=== PATIENT | female | born 1990 | race Asian ===

== ENCOUNTER 2017-08-29 17:13 | Inpatient (IN) | payer BC ==
[2017-08-29] MEDS ORDERED: OBEPIDURAL* 250 ML ONE (22:21)
[2017-08-29 22:54] LABS: Hematocrit 37 % (35-47); Hemoglobin 12.5 g/dl (12.0-16.0); Mean Corpuscular HGB Conc 34 g/dl (31-36); Mean Corpuscular Hemoglobin 28 pg (27-31); Mean Corpuscular Volume 84 fL (80-97); Mean Platelet Volume 11 um3 (7.4-10.4); Red Blood Count 4.42 10^6/ul (4.0-5.4); Red Cell Distribution Width 13 % (10.5-15); White Blood Count 9.6 10^3/ul (3.5-10.8)
[2017-08-29] MEDS ORDERED: Phenylephrine IV* 40 MCG/ML 10 ML SYRINGE IV PUSH PRN ×2 (23:21)
[2017-08-29] MEDS ORDERED: EPHEDrine (Pressors)* 50 MG/ML VIAL IV PUSH PRN ×2 (23:21)
[2017-08-29] MEDS ORDERED: OBEPIDURAL* 250 ML EPIDURAL SCH (23:45)
[2017-08-30] MEDS ORDERED: Acetaminophen TAB* 325 MG PO ONE (04:03)
[2017-08-30] MEDS ORDERED: Acetaminophen TAB* 325 MG ONE (04:04)
[2017-08-30] MEDS ORDERED: Ampicillin IV* 2 GM in NS 0.9% 100 ML* 100 ML IVPB ONE ×2 (05:28→11:55)
[2017-08-30 05:58] LABS: Hematocrit 33 % (35-47); Hemoglobin 11.2 g/dl (12.0-16.0); Mean Corpuscular HGB Conc 34 g/dl (31-36); Mean Corpuscular Hemoglobin 29 pg (27-31); Mean Corpuscular Volume 84 fL (80-97); Mean Platelet Volume 10 um3 (7.4-10.4); Red Cell Distribution Width 13 % (10.5-15); White Blood Count 9.5 10^3/ul (3.5-10.8)
[2017-08-30] MEDS: GENTAMICIN ADULT IVPB SCH ×2 (06:11→14:03)
[2017-08-30] MEDS: NS 0.9% IVPB SCH ×2 (06:11→14:03)
[2017-08-30] MEDS ORDERED: Oxytocin in LR* 20 UNITS/1,000 ML BAG IVPB ONE (15:24)
[2017-08-30] MEDS ORDERED: Acetaminophen TAB* 325 MG PO PRN (16:05)
[2017-08-30] MEDS ORDERED: Glycerin ADULT SUPP PR PRN (16:05)
[2017-08-30] MEDS ORDERED: Oxytocin in LR* 20 UNITS/1,000 ML BAG IVPB SCH (17:00)
[2017-08-30] MEDS ORDERED: Simethicone TAB* 80 MG TAB.CHEW PO SCH (17:30)
[2017-08-30] MEDS: Ibuprofen TAB* 600 MG PO PRN (18:10)
[2017-08-30] MEDS: Dibucaine 1% 28.35 GM TUBE PR PRN (19:27)
[2017-08-30] MEDS: Witch Hazel PAD* JAR TOPICAL PRN (19:27)
[2017-08-30] MEDS: Docusate CAP* 100 MG PO SCH (20:59)
[2017-08-30] MEDS ORDERED: Phenylephrine IV* 40 MCG/ML 10 ML SYRINGE ONE (22:13)
[2017-08-31] MEDS: Ibuprofen TAB* 600 MG PO PRN ×4 (04:02→21:59)
[2017-08-31 07:48] LABS: Hematocrit 28 % (35-47); Mean Corpuscular HGB Conc 33 g/dl (31-36); Mean Corpuscular Hemoglobin 28 pg (27-31); Mean Corpuscular Volume 85 fL (80-97); Mean Platelet Volume 10 um3 (7.4-10.4); Red Blood Count 3.24 10^6/ul (4.0-5.4); Red Cell Distribution Width 13 % (10.5-15); White Blood Count 12.8 10^3/ul (3.5-10.8)
[2017-08-31] MEDS: Ferrous Gluconate TAB* 324 MG TAB PO SCH ×2 (09:51→21:59)
[2017-08-31] MEDS: Docusate CAP* 100 MG PO SCH ×3 (09:52→21:59)
[2017-09-01] MEDS: Ibuprofen TAB* 600 MG PO PRN (08:54)
[2017-09-01] MEDS: Docusate CAP* 100 MG PO SCH (08:55)
[2017-09-01] MEDS: Witch Hazel PAD* JAR TOPICAL PRN (08:55)
[2017-09-01] MEDS: Ferrous Gluconate TAB* 324 MG TAB PO SCH (08:55)
[2017-09-01] MEDS: Dibucaine 1% 28.35 GM TUBE PR PRN (08:55)
--- NOTE | 2017-09-01 08:55 | PTEDU ---
Patient Name: NEVILLE MONDRAGON NEVILLE MONDRAGON selected video: Never Ever Shake a Baby to view on 09/01/2017 at 8:54:06 AM [place] [facility] [id number]
--- NOTE | 2017-09-01 09:08 | PTEDU ---
Patient Name: NEVILLE MONDRAGON NEVILLE MONDRAGON selected video: Follow Me Mum: [employer] to Successful to view on 017 at 9:08:27 [id number]
[2017-09-01 09:24] VITALS: BP 114/79
--- NOTE | 2017-09-01 09:30 | PTEDU ---
Patient Name: NEVILLE MONDRAGON NEVILLE MONDRAGON selected video: BBOB: Nurturing Your Gorgeous &Growing Baby by to view on 09/01/2017 at 9:29:52 [id number]
== END 2017-09-01 12:42 | disposition home or self-care (01) | DRG 560 ==
LOC: MCHOBOUT 17:13 → MCHOB 18:22
PROVIDERS: ADMIT Midwife; ATTEND Midwife
PROC: 10907ZC Drainage of Amniotic Fluid, Therapeutic from Products of Conception, Via Natural or Artificial Opening (ICD-10-PCS; principal; 2017-08-30)
PROC: 4A1HX4Z Monitoring of Products of Conception, Cardiac Electrical Activity, External Approach (ICD-10-PCS; 2017-08-30)
PROC: 10E0XZZ Delivery of Products of Conception, External Approach (ICD-10-PCS; 2017-08-30)
PROC: 0KQM0ZZ Repair Perineum Muscle, Open Approach (ICD-10-PCS; 2017-08-30)
DX: O24.429 Gestational diabetes mellitus in childbirth, unspecified control (principal); O75.2 Pyrexia during labor, not elsewhere classified; O41.1230 Chorioamnionitis, third trimester, not applicable or unspecified; O70.1 Second degree perineal laceration during delivery; O90.81 Anemia of the puerperium; O76 Abnormality in fetal heart rate and rhythm complicating labor and delivery; Z3A.39 39 weeks gestation of pregnancy; Z37.0 Single live birth
CPT/HCPCS: 36415; 85025; 86850; 86900; 86901; A9270-GY; J0290; J1580

== ENCOUNTER 2018-09-25 21:33 | Emergency (ER) | payer BC ==
[2018-09-25 21:43] VITALS: BP 126/76
[2018-09-25] MEDS ORDERED: Clindamycin CAP* 150 MG PO ONE ×2 (21:43→21:44)
--- NOTE | 2018-09-25 21:46 | UC ---
Throat Pain/Nasal Gonzalo HPI - HPI Summary HPI Summary: 28-year-old woman comes in to clinic today with a chief complaint of more than a week's worth of upper respiratory tract infection symptoms. She's been having yellow rhinorrhea and sinus headaches and chills. No chest congestion does have some body aches. She's breast-feeding her daughter right now and so she's been avoiding [id number] medications. Her daughter is being treated for an ear infection at this time on clindamycin. Her daughter had an allergic reaction to amoxicillin. - History of Current Complaint Stated Complaint: CHEST CONGESTION Time Seen by Provider: 09/25/18 21:36 Hx Last Menstrual Period: NOW - Allergies/Home Medications Allergies/Adverse Reactions: Allergies Allergy/AdvReac Type Severity Reaction Status Date / Time No Known Allergies Allergy Verified 09/25/18 21:43 PMH/Surg Hx/FS Hx/Imm Hx Previously Healthy: Yes Other History Of: Negative For: HIV, Hepatitis B, Hepatitis C - Surgical History Surgical History: None - Family History Known Family History: Negative: Renal Disease, Blood Disorder - Social History Alcohol Use: None Substance Use Type: None Smoking Status (MU): Never Smoked Tobacco - Immunization History Most Recent Influenza Vaccination: 06/26/2017 Most Recent Pneumonia Vaccination: n/a Review of Systems All Other Systems Reviewed And Are Negative: Yes Constitutional: Positive: Chills Skin: Positive: Negative Eyes: Positive: Negative ENT: Positive: Sore Throat, Nasal Discharge, Sinus Congestion, Sinus Pain/ Tenderness Respiratory: Positive: Negative Cardiovascular: Positive: Negative Gastrointestinal: Positive: Negative Motor: Positive: Negative Neurovascular: Positive: Negative Musculoskeletal: Positive: Negative Neurological: Positive: Negative Psychological: Positive: Negative Is Patient Immunocompromised?: No Physical Exam Triage Information Reviewed: Yes Appearance: No Pain Distress, Well-Nourished, Ill-Appearing - MILD Vital Signs Reviewed: Yes Eye Exam: Normal Eyes: Positive: Conjunctiva Clear ENT: Positive: Pharyngeal erythema, Nasal congestion, Nasal drainage, TMs normal , Uvula midline Neck exam: Normal Neck: Positive: Supple, Nontender Respiratory: Positive: Lungs clear, Normal breath sounds, No respiratory distress Cardiovascular: Positive: RRR Musculoskeletal Exam: Normal Musculoskeletal: Positive: Strength Intact, ROM Intact Neurological Exam: Normal Neurological: Positive: Alert, Muscle Tone Normal Psychological Exam: Normal Psychological: Positive: Age Appropriate Behavior Skin Exam: Normal Throat Pain/Nasal Course/Dx - Course Course Of Treatment: Patient's symptoms been going on for more than a week. We discussed viral versus bacterial infections and the role of antibiotics and the patient prefers to be on an antibiotic at this time. Because of her daughters allergic reaction to amoxicillin and the patient is breast-feeding the plan is to treat with clindamycin. - Differential Dx/Diagnosis Provider Diagnosis: Sinusitis Discharge - Sign-Out/Discharge Documenting (check all that apply): Patient Departure All imaging exams completed and their final reports reviewed: No Studies - Discharge Plan Condition: Stable Disposition: HOME Prescriptions: Clindamycin Cap(NF) [Clindamycin Cap 300 mg Cap(NF)] 300 mg PO Q6H #38 cap Patient Education Materials: Sinusitis (ED) Referrals: Amara Romo MD [Primary Care Provider] - Additional Instructions: FOLLOW UP WITH YOUR DOCTOR IF NOT COMPLETELY IMPROVED. GET RECHECKED FOR ANY WORSENING OF YOUR CONDITION OR QUESTIONS OR CONCERNS. - Billing Disposition and Condition Condition: STABLE Disposition: Home
== END 2018-09-25 21:51 | disposition home or self-care (01) ==
LOC: UCEAST 21:33
DX: J32.9 Chronic sinusitis, unspecified (principal)
CPT/HCPCS: 99212; A9270-GY; G0463

== ENCOUNTER 2019-06-29 12:26 | Inpatient (IN) | payer BC ==
[2019-06-29 13:49] LABS: Urine Benzodiazepine Screen None Detected (None Detect); Urine Opiates Screen None Detected (None Detect)
[2019-06-29] MEDS ORDERED: Buffered Lidocaine 1% SYRIN* 1 ML/SYRINGE INTRADERM ONE (14:11)
[2019-06-29] MEDS ORDERED: Lactated Ringers 1000 ML Bag* 1,000 ML IV ONE ×2 (14:11→20:07)
--- NOTE | 2019-06-29 14:20 | HP ---
General Information - Reason for Visit Pt reports SROM to clear fluid at 0920. - General Information Maternal Age: 29 Grav: 2 Para: 1 SAB: 0 IEA: 0 Estimated Due Date: 07/07/19 Determined By: Early Ultrasound Maternal Blood Type and Rh: B Positive - Results this Serology/RPR Result: Non-Reactive Rubella Result: Immune HBsAg Result: Negative HIV Result: Negative GBS Culture Result: Negative Past Medical History Delivery History: Hx Uncomplicated Vaginal Delivery Pertinent Past Medical History: See Records - depression, back pain Pertinent Past Surgical History: None Pertinent Family History: Non-Contributory - Antepartal Records Antepartal Records: Reviewed, Complicated by: - GDM diet controlled Review of Systems Constitutional: Comfortable CV Complaint: No Respiratory: Shortness of Breath: No Gastrointestinal: No Nausea/Vomiting, Normal Bowel Movement Genitourinary: Leaking Fluid, No Dysuria, No Bleeding Musculoskeletal: No Epigastric Pain, Contractions Neurological: No Headache, No Visual Changes Movement: Normal Exam Allergies/Adverse Reactions: Allergies No Known Allergies Allergy (Verified 06/27/19 22:35) T- 98.3, P-101, R-19, O2-100%, BP- 121/76 Lab Values - Entire Visit: Laboratory Tests 06/29/19 06/29/19 12:36 12:36 Vag Amniotic Fld Detect Positive Urine Opiates Screen None detected Ur Barbiturates Screen None detected Ur Phencyclidine Scrn None detected Ur Amphetamines Screen None detected U Benzodiazepines Scrn None detected Urine Cocaine Screen None detected U Cannabinoids Screen None detected - Measurements Height: 5 ft 2 in Weight: 58.967 kg Weight in lbs: 130.451399 Body Mass Index (BMI): 23.8 Pre- Weight: 53.524 kg Weight Gained This : 11.999 lbs and 0.013 ozs - Exam Breast: Breast Exam Deferred CVA: No CVA Tenderness Extremities: No Edema Heart: Normal Rhythm/Heart Sounds HEENT: No Significant Findings Lungs: Clear Bilaterally Rectal: Rectal Exam Deferred Reflexes: DTR 2+ Thyroid: No Thyromegaly - Abdominal Exam Abdomen Exam: Non-Tender, Fundal Height Consistent with Dates - Ultrasound/Biophysical Profile Ultrasound Status: Not Done Targeted Exam Findings See L&D Outpatient Visit Provider Note for Findings: N/A Estimated Weight: 7# Cervical Exam: 2cm Effacement: 80% Station: -2 Presenting Part: Vertex Membrane Status: SROM Amniotic Fluid Evaluation: Gross Rupture, Positive ROM Plus, Clear Bleeding/Discharge: None EFM Findings - External Monitor Findings Baseline Heart Rate: 135 External Monitor Findings: Accelerations Present, No Pattern of Variable or Late Decelerations, Variability Moderate, Baseline Stable Contractions: Irregular Contraction Frequency: 2-10 Assessment/Plan - Assessment 29 year old at 38 6/7 weeks gestation with SROM to clear fluid in early labor. No evidence of acidemia, no evidence of chorioamnionitis. complicated by GDM, diet controlled. - Obstetrical Risk Factors Obstetrical Risk Factors: Gestational Diabetes - Plan Plan: Admit - Anticipate Vaginal Delivery Plan Comment: Discussed options with pt. Counseled on risks of prolonged rupture of membranes , including risk of infection. Currently brad although in early labor. Pt would like to await spontaneous labor at this time, but agrees to augmentation should she not be in active labor by 12 hours post SROM. - Date/Time of Admission Date of Admission: 06/29/19 Time of Admission: 14:06
[2019-06-29] MEDS ORDERED: Lactated Ringers 1000 ML Bag* 1,000 ML IV SCH ×3 (15:00→21:00)
--- NOTE | 2019-06-29 17:43 | PN ---
Progress Note - Progress Note Date of Service: 06/29/19 SOAP: Subjective: Pt resting on her side in bed. Reports some ctx feel strong, others more mild. Relatively comfortable. Objective: FHR: Baseline 125/ moderate variability/ + accels/ no decels UCs: Irregular, 1-6 minutes, varying intensity Temp: 98.0 Fluid clear Assessment: Pt still does not appear to be in active labor, although she is having some ctx. No evidence of acidemia or chorioamnionitis. Plan: Pt wishes to continue expectant management at this time. Will consider Pitocin augmentation if no onset active labor prior to 2100
[2019-06-29] MEDS ORDERED: OBEPIDURAL* 250 ML EPIDURAL ONE (19:21)
--- NOTE | 2019-06-29 19:22 | PN ---
Progress Note - Progress Note Date of Service: 06/29/19 Note: Pt reported increasingly strong ctx. Tried tub, minimal relief. Cervical exam: 2cm/ 100%/ -2/ posterior. Discussed options. Given minimal change, recommend starting Pitocin. Given pt's level of pain, can try IV pain meds, or would be reasonable to do early epidural. Pt prefers early epidural. IV access established, blood sent to lab. Anesthesia notified.
[2019-06-29 19:31] LABS: ABS Eosinophils 0.1 10^3/ul (0-0.6); ABS Lymphocytes 1.9 10^3/ul (1.0-4.8); ABS Monocytes 0.7 10^3/ul (0-0.8); ABS Neutrophils 7.2 10^3/ul (1.5-7.7); Eosinophil % 0.6 %; Hematocrit 38 % (35-47); Hemoglobin 12.7 g/dL (12.0-16.0); Lymphocyte % 19.3 %; Mean Corpuscular HGB Conc 34 g/dL (31-36); Mean Corpuscular Hemoglobin 29 pg (27-31); Mean Corpuscular Volume 85 fL (80-97); Mean Platelet Volume 9.8 fL (7.4-10.4); Platelet Count 133 10^3/uL (150-450); Red Blood Count 4.44 10^6 /uL (3.70-4.87); Red Cell Distribution Width 13 % (10-15); White Blood Count 9.8 10^3/uL (3.5-10.8)
[2019-06-29] MEDS ORDERED: Famotidine TAB* 20 MG PO PRN (20:07)
[2019-06-29] MEDS ORDERED: Phenylephrine 40 MCG/ML SYRINGE IV PUSH PRN ×2 (20:07)
[2019-06-29] MEDS ORDERED: Lactated Ringers 1000 ML Bag* 500 ML IV PRN ×2 (20:07)
[2019-06-29] MEDS ORDERED: Sodium Citrate/Citric Acid* 15 ML UDC PO PRN (20:07)
[2019-06-29] MEDS ORDERED: OBEPIDURAL* 250 ML EPIDURAL SCH (21:00)
--- NOTE | 2019-06-29 22:01 | PN ---
Progress Note - Progress Note Date of Service: 06/29/19 SOAP: Subjective: Pt intermittently sleeping, reports good pain relief from epidural. Objective: FHR: Baseline 150, minimal to moderate variability/ no accels/ no decels UCs: 2-3 minutes Fluid clear BP: 103/59 Temp: 100.1 Assessment: Pt brad regularly at this time, no need to start Pitocin. FHR with periods of decreased variability, no decelerations. Temp mildly elevated, pt was under many blankets. Plan: Some blankets removed. Will try position changes to see if FHR tracing can be made more reactive.
[2019-06-29] MEDS ORDERED: Oxytocin in LR* 20 UNITS/1,000 ML BAG IVPB ONE (23:49)
[2019-06-30] MEDS ORDERED: Glycerin ADULT SUPP PR PRN (00:03)
[2019-06-30] MEDS ORDERED: Witch Hazel PAD* JAR TOPICAL PRN (00:03)
[2019-06-30] MEDS ORDERED: Dibucaine 1% 28.35 GM TUBE PR PRN (00:03)
[2019-06-30] MEDS: Ibuprofen TAB* 600 MG PO PRN ×4 (00:49→20:46)
[2019-06-30] MEDS ORDERED: Lactated Ringers 1000 ML Bag* 1,000 ML IV SCH (01:00)
[2019-06-30] MEDS ORDERED: Oxytocin in LR* 20 UNITS/1,000 ML BAG IVPB SCH (01:00)
--- NOTE | 2019-06-30 01:28 | PN ---
Progress Note - Progress Note Date of Service: 06/30/19 Note: At the end of labor, pt's temp increased to 100.1. born soon after. At first vital signs measurement , pt's temp was 101.5. She was also tachycardic, HR 120. No excessive uterine tenderness, heavy bleeding, or purulent fluid. Infant vigorous and without signs of infection. Consulted with Dr. Rosa Delgado. He recommended single doses of gentamicin 1.5 mg/ kg and Clindamycin 900mg. Discussed recommendations with pt and , she agrees. Abx ordered.
[2019-06-30] MEDS ORDERED: Clindamycin 900 MG/D5W BAG(*) 900 MG/50 ML BAG IVPB ONE (01:30)
[2019-06-30] MEDS ORDERED: Gentamicin ADULT (*) 90 MG in NS 0.9% 100 ML* 100 ML IVPB ONE (02:30)
[2019-06-30] MEDS: Acetaminophen TAB* 325 MG PO PRN ×2 (06:30→18:33)
[2019-06-30] MEDS: Docusate CAP* 100 MG PO SCH ×3 (08:47→20:45)
[2019-06-30 11:48] LABS: ABS Lymphocytes 1.8 10^3/ul (1.0-4.8); ABS Monocytes 0.8 10^3/ul (0-0.8); ABS Neutrophils 8.3 10^3/ul (1.5-7.7); Eosinophil % 0.2 %; Hematocrit 30 % (35-47); Lymphocyte % 16.4 %; Mean Corpuscular HGB Conc 34 g/dL (31-36); Mean Corpuscular Hemoglobin 28 pg (27-31); Mean Corpuscular Volume 84 fL (80-97); Mean Platelet Volume 9.2 fL (7.4-10.4); Platelet Count 103 10^3/uL (150-450); Red Blood Count 3.55 10^6 /uL (3.70-4.87); Red Cell Distribution Width 13 % (10-15)
--- NOTE | 2019-06-30 19:14 | PROCNOTE ---
[facility] OB: Delivery Note - Delivery A Date of : 06/29/19 Time of : 23:45 [place] Sex: Male Weight at : 3.475 kg Score 1 Minute: 9 Score 5 Minutes: 9 Gestational Age in Weeks and Days at Delivery: 38 Weeks and 6 Days Delivery Method: Spontaneous Vaginal Labor: Spontaneous Did Patient attempt ?: N/A, No Previous Amniotic Fluid: Clear Estimated Blood Loss: 400 Anesthesia/Analgesia: CEI for Labor Delivered By: Kami Feng Nursery Level of Nursery: Regular/Bedside - Perineum Perineal Injury: None/Intact Perineal Repair: None - Events Delivery Events of Note: Pitocin Only After Delivery - Additional Delivery Notes Additional Delivery Notes: Pt experienced SROM to clear fluid in early labor and after awaiting onset active labor at home for a couple hours presented to L&D. Pt became uncomfortable and after utilizing tub without adequate relief, requested and received an epidural with good pain relief. Pt then began to contract more frequently, and augmentation with Pitocin was not necessary. As pt neared full dilation temp was slightly elevated but not febrile. Pt then came to full dilation with urge to push. Began pushing with good effort and rapid descent. Pt brought infant to and coached through slow, controlled delivery of the head. Shoulders followed without difficulty. placed on maternal abdomen with vigorous cry, good tone, HR>100, dried and stimulated. After cord pulsation ceased cord clamped x2 and cut by infant's father. Placenta soon followed, spontaneous and jameel. Initial bleeding brisk, resolved with fundal massage and IV Pitocin. At pt's first vital signs check following the she was found to have a temperature of 101.5. Consulted with Dr. Delgado and administered single dose of Gentamicin and Clindamycin IV. Pt has been afebrile since. Mother and stable at this time, anticipate normal course.
[2019-07-01] MEDS: Acetaminophen TAB* 325 MG PO PRN (02:34)
[2019-07-01] MEDS: Ibuprofen TAB* 600 MG PO PRN (08:28)
[2019-07-01 08:38] VITALS: BP 103/64
[2019-07-01] MEDS: Docusate CAP* 100 MG PO SCH (08:44)
[2019-07-01] MEDS ORDERED: Ferrous Gluconate TAB* 324 MG TAB PO SCH (09:00)
== END 2019-07-01 12:08 | disposition home or self-care (01) | DRG 560 ==
LOC: MCHOBOUT 12:26 → MCHOB 14:06
PROVIDERS: ADMIT Midwife; ATTEND Midwife
PROC: 10E0XZZ Delivery of Products of Conception, External Approach (ICD-10-PCS; principal; 2019-06-29)
DX: O24.420 Gestational diabetes mellitus in childbirth, diet controlled (principal); O75.2 Pyrexia during labor, not elsewhere classified; Z37.0 Single live birth; O99.344 Other mental disorders complicating childbirth; F32.9 Major depressive disorder, single episode, unspecified; Z3A.38 38 weeks gestation of pregnancy
CPT/HCPCS: 36415; 80307; 84112; 85025; 86850; 86900; 86901; A9270-GY; J1580

== ENCOUNTER 2019-07-20 11:10 | Emergency (ER) | payer BC ==
--- OUTSIDE RECORDS SUMMARY | 2019-07-20 11:15 | XMS REPORT | Continuity of Care Document ---
:1990 External Reference #:[id number] Author Name Carlos Alberto Kaur CNM Address [address] [place] [id number] Care Team Providers Name Role Phone Amara Romo MD Care Team Information Parts Order And Stock Clerk [phone] Problems Active Problems Provider Date Impaired glucose tolerance Idalia Neville CNM Onset: 03/27/2018 Note: On 2 hour GTT Social History Type Date Description Comments Sex Unknown Tobacco Use Start: Unknown Never Smoked Cigarettes ETOH Use Alcohol Use Prior To 5 glasses wine/week. Recreational Drug Use Does Not Use Drugs Tobacco Use Start: Unknown Patient has never smoked Smoking Status Reviewed: 10/26/18 Patient has never smoked Exercise Type/Frequency Exercises sporadically Seat Belt/Car Seat Always uses seat belt Allergies, Adverse Reactions, Alerts Description No Known Drug Allergies Medications Active Medications SIG Qnty Indications Ordering Provider Date Sertraline HCL 1 by mouth every 60tabs Carlos Alberto Kaur, 07/18/2019 25mg day, taper up as CNM Tablets discussed Complete Unknown History Medications Lancets for use with blood 100units Janny Jordan, 04/26/2019 - [facility] [place]. use [facility] 07/18/2019 as directed four times a day Blood Glucose Test for use with blood 1Box Janny Julian, 04/26/2019 - glucose monitoring [facility] 07/18/2019 Strips system. test 4x day as directed Freestyle Coretta 14 use 4 times daily to 1units Slime Mcgill 04/26/2019 - Day/[place]/Flash monitor blood Bailee, CN 07/18/2019 Monitoring System glucose Device Freestyle Coretta 14 use to monitor blood 1units Slime Mcgill 04/26/2019 - Day/Sensor/Flash glucose 4 times BaileeMARIA ALEJANDRA 07/18/2019 Monitoring System daily Misc Medications Administered in Office Medication SIG Qnty Indications Ordering Provider Date PT SCRN Tbco Id as Non User Eulalioalysa Jamin, MARIA ALEJANDRA 10/26/2018 Injection PT SCRN Tbco Id as Non User Eulalioalysa Jamin, MARIA ALEJANDRA 03/27/2018 Injection Immunizations CPT Code Status Date Vaccine Lot # [id number] Given 04/12/2019 Tetnus, Diptheria Toxoids And Acellular Pertussis, 525NP PT > 7Yrs Old [id number] Given 06/02/2017 Tetnus, Diptheria Toxoids And Acellular Pertussis, [id number] PT > 7Yrs Old Vital Signs Date Vital Result Comment 07/18/2019 8:03am BP Systolic 100 mmHg BP Diastolic 58 mmHg Height 61 inches 5'1" Weight 120.00 lb BMI (Body Mass Index) 22.7 kg/m2 2 Parity 2 12/27/2018 9:57am BP Systolic 98 mmHg BP Diastolic 62 mmHg Height 61 inches 5'1" Weight 117.00 lb BMI (Body Mass Index) 22.1 kg/m2 2 Parity 1 Results Test Date Facility Test Result H/L Range Note Laboratory test [facility] Rupture of Positive 1 finding [address] [place] [address] [facility] [phone] Urine Drug SCR [facility] Urine None Detected None ED & Pain 9 [place] [address] Amphetamine Detect Clinic [phone] Screen Urine Barbiturates Screen None Detected None Detect Urine Benzodiazepine Screen None Detected None Detect Urine Cannabinoids Screen None Detected None Detect Urine Cocaine Screen None Detected None Detect Urine Opiates Screen None Detected None Detect Urine Phencyclidine Screen None Detected None Detect 2 Urine Drug 06/27/2019 [facility] Urine None Detected None [place] [address] [facility] [phone] Screen Urine Barbiturates Screen None Detected None Detect Urine Benzodiazepine Screen None Detected None Detect Urine Cannabinoids Screen None Detected None Detect Urine Cocaine Screen None Detected None Detect Urine Opiates Screen None Detected None Detect Urine Phencyclidine Screen None Detected None Detect 3 Urinalysis Profile 06/24/2019 [facility] Urine Color Yellow [address] [place] [address] [phone] Urine Appearance Clear Urine Specific Saltese 1.012 Normal 1.010-1.030 Urine pH 8.0 Normal 5-9 Urine Urobilinogen Negative Negative Urine Ketones Negative Negative Urine Protein Negative Negative Urine Leukocytes Negative Negative Urine Blood Negative Negative Urine Nitrite Negative Negative Urine Bilirubin Negative Negative Urine Glucose Negative Negative Urine Drug 06/24/2019 [facility] Urine None Detected None [place] [address] [facility] [phone] Screen Urine Barbiturates Screen None Detected None Detect Urine Benzodiazepine Screen None Detected None Detect Urine Cannabinoids Screen None Detected None Detect Urine Cocaine Screen None Detected None Detect Urine Opiates Screen None Detected None Detect Urine Phencyclidine Screen None Detected None Detect 5 Laboratory test 06/14/2019 [facility] Genital For GRP SEE RESULT [address] [place] [address] B Strep Only BELOW [phone] Glucose 04/25/2019 [facility] GTT 3HR (SEE NOTE) 7 Tolerance 3[place] [address] Gestational Gestational [phone] Laboratory test 04/12/2019 [facility] Glucose 1 HR 138 mg/dL Normal 70-1 8 [place] [address] Post Prandial 60 [phone] CBC With No Diff 04/12/2019 [facility] White Blood 7.4 Normal 3.5- [place] [address] Count 10^3/uL 10.8 [phone] Red Blood Count 4.31 10^6/uL Normal 3.70-4.87 Hemoglobin 13.0 g/dL Normal 12.0-16.0 Hematocrit 39 % Normal 35-47 Mean Corpuscular Volume 90 fL Normal 80-97 Mean Corpuscular Hemoglobin 30 pg Normal 27-31 Mean Corpuscular HGB Conc 33 g/dL Normal 31-36 Red Cell Distribution Width 13 % Normal 10-15 Platelet Count 144 10^3/uL Low 150-450 Mean Platelet Volume 9.8 fL Normal 7.4-10.4 Sequential Integreated 01/25/2019 Old DO Not Use [facility] Interpretation SEE BELOW 9 SCRN 2 [place] Risk For Ontd 1:4100 Age Risk Down Syndrome 1:940 OCTAVIA Down Syndrome Risk <1:5000 <1:270 OCTAVIA Trisomy 18 Risk <1:5000 <1:100 Calculated Gestational Age 16.6 10 Afp,Serum 55.0 ng/mL Afp Mom 1.32 11 HCG,Serum 21.6 IU/mL HCG Mom 0.54 Estriol,Free 0.93 ng/mL Estriol Mom 0.92 Inhibin A,Dimeric 151 pg/mL Inhibin A Mom 0.77 Génesis-A 1868.1 ng/mL 12 Génesis-A Mom 1.50 NT Mom 1.06 13 Referring Physician Name NOT GIVEN Referring Physician Phone NOT GIVEN Referring Physician Npi NOT GIVEN Specimen # From Part 1 NOT GIVEN Date Of 1990 Collection Date 01/25/2019 Maternal Weight 117 lbs Est'd Date Of Delivery 07/07/2019 Nuchal Translucency 1.5 mm [place] Rump Length 62.0 mm Ultrasound Date 12/27/2018 Nasal Bone NG Mother's Ethnic Origin Insulin Depend Diabetic NO Repeat Specimen NO Number Of Fetuses 1 HX Of Neural Tube Defects NO Cigarette Smoker NOT GIVEN Twin B Nasal Bone NG 14 GC/Chlamydia Dna 01/25/2019 [facility] Chlamydia [place] [address] trachomatis Rna [phone] Neisseria gonorrhoeae (GC) Rna Negative Negative Urine Drug 01/25/2019 [facility] Urine Amphetamine Negative ng/ mL 15 Comp 20 [place] [address] [phone] Urine Barbiturates Negative ng/mL 16 Urine Benzodiazepines Negative ng/mL 17 Urine Cocaine Negative ng/mL 18 Urine Phencyclidine Negative ng/mL Cutoff: 25 Urine Tetrahydrocannabinol Negative ng/mL Cutoff: 50 19 Creatinine, Urine 123.5 mg/dL Specific Saltese 1.009 pH 7.2 Oxidants Negative 20 Adulterants Comment Normal Codeine, Ur Not Detected ng/mL Cutoff: 25 21 Eesccrd-2-hfii-glucuronide, Ur Not Detected ng/mL 22 Morphine, Ur Not Detected ng/mL Cutoff: 25 23 Vfmbwyjr-9-xsvd-glucuronide, U Not Detected ng/mL 24 6-monoacetylmorphine, Ur Not Detected ng/mL Cutoff: 25 25 Hydrocodone, Ur Not Detected ng/mL Cutoff: 25 26 Norhydrocodone, Ur Not Detected ng/mL Cutoff: 25 27 Dihydrocodeine, Ur Not Detected ng/mL Cutoff: 25 28 Hydromorphone, Ur Not Detected ng/mL Cutoff: 25 29 Tdlpagqrjzqoo3nxpmsgpedanguxt Not Detected ng/mL 30 Oxycodone, Ur Not Detected ng/mL Cutoff: 25 31 Noroxycodone, Ur Not Detected ng/mL Cutoff: 25 32 Oxymorphone, Ur Not Detected ng/mL Cutoff: 25 33 Hzzzyvslowz-9-kpey-glucuronide Not Detected ng/mL 34 Noroxymorphone, Ur Not Detected ng/mL Cutoff: 25 35 Fentanyl, Ur Not Detected ng/mL Cutoff: 2 36 Norfentanyl, Ur Not Detected ng/mL Cutoff: 2 37 Meperidine, Ur Not Detected ng/mL Cutoff: 25 38 Normeperidine, Ur Not Detected ng/mL Cutoff: 25 39 Naloxone, Ur Not Detected ng/mL Cutoff: 25 40 Ftikxhms-4-mrck-glucuronide, U Not Detected ng/mL 41 Methadone, Ur Not Detected ng/mL Cutoff: 25 42 Eddp, Ur Not Detected ng/mL Cutoff: 25 43 Propoxyphene, Ur Not Detected ng/mL Cutoff: 25 44 Norpropoxyphene, Ur Not Detected ng/mL Cutoff: 25 45 Tramadol, Ur Not Detected ng/mL Cutoff: 25 46 O-desmethyltramadol, Ur Not Detected ng/mL Cutoff: 25 47 Tapentadol, Ur Not Detected ng/mL Cutoff: 25 48 N-desmethyltapentadol, Ur Not Detected ng/mL Cutoff: 50 49 Bttglnyjjk-gunu-gtsuogxswfe, U Not Detected ng/mL 50 Buprenorphine, Ur Not Detected ng/mL Cutoff: 5 51 Norbuprenorphine, Ur Not Detected ng/mL Cutoff: 5 52 Norbuprenorphine glucuronide Not Detected ng/mL Cutoff: 20 53 Opioid Interpretation See Comment 54 1 A POSITIVE result indicates probable membrane rupture. 2 The urine specimen was tested at the listed cutoffs: Drug class test level (ng/mL) Amphetamines 500 Barbiturates 200 Benzodiazepine metabolites 200 Cocaine metabolites 150 Cannabinoids 50 Opiates 300 Pcp 25 Specimen was received without chain of custody. Results should be used for medical purposes only. 3 The urine specimen was tested at the listed cutoffs: Drug class test level (ng/mL) Amphetamines 500 Barbiturates 200 Benzodiazepine metabolites 200 Cocaine metabolites 150 Cannabinoids 50 Opiates 300 Pcp 25 Specimen was received without chain of custody. Results should be used for medical purposes only. 4 Urine Source: Clean Catch 5 The urine specimen was tested at the listed cutoffs: Drug class test level (ng/mL) Amphetamines 500 Barbiturates 200 Benzodiazepine metabolites 200 Cocaine metabolites 150 Cannabinoids 50 Opiates 300 Pcp 25 Specimen was received without chain of custody. Results should be used for medical purposes only. 6 SEE RESULT BELOW Name: NEVILLE ODONNELL : [address]: Janny Jordan CNM Acct: [id number] Unit: [id number] AGE: 29 Location: [facility] Re06/14/19 SEX: F Status: REG REF SPEC: [id number] SILAS: 06/14/19-1135 [facility] DR: Janny Jordan CNM REQ: [id number] RECD: 06/14/195376 STATUS: COMP _ SOURCE: BETZAIDA/VAG/RE SPDESC: ORDERED: Grp B Strp Scrn COMMENTS: [id number] QUERIES: Is Patient Penicillin Allergic? N Is patient penicillin allergic and/or sensitivities needed? N Provider Requisition # [id number] Procedure Result Reported Site Group B Strep Culture Screen Final 06/16/19- 1053 ML Group B Strep Screen Negative * ML - Main Lab . END OF REPORT DEPARTMENT OF PATHOLOGY, [address] [place] [address] Braden Wright M.D. Director [facility] # [id number] GLU Fast 85 Col: 04/25/19 1225 GLU 1HR 181 Col: 04/25/19 1325 GLU 2HR 201 Col: 04/25/19 1425 GLU 3HR 162 Col: 04/25/19 1525 GLU Interp Col: 04/25/19 1225 GTT normal ranges for obstetrics per the [employer] (ACOG).Based on 100 gm glucose load: Fasting <95 mg/dl 1hr <180 mg/dl 2hr <155 mg/dl 3hr <140 mg/dl 8 [id number] SCREEN NEGATIVE FOR OPEN NTD, DOWN SYNDROME AND TRISOMY 18. NT WAS USED IN THE RISK CALCULATIONS. 10 [place] rump length (CRL) was used to calculate gestational age. LIVE, if provided, was not used for gestational age dating. 11 Reference Range: <2.50 IDD <1.90 TWINS <4.00 TWINS IDD <3.50 TRIPLETS <4.50 12 This test was performed using a kit that has not been cleared or approved by the FDA. The analytical performance characteristics of this test have been determined by [facility]. This test should not be used for diagnosis without confirmation by other medically established means. 13 The Sequential Integrated Screen combines GÉNESIS-A and hCG with or without a nuchal translucency measurement in the first trimester with AFP, unconjugated estriol, intact hCG and Inhibin A in the second trimester. This provides a useful screening test for detection of open neural tube defects, Down syndrome and Trisomy 18. It should be noted that normal results can never guarantee the of a normal baby and that 2 to 3 percent of newborns have some type of physical or mental defect, many of which are undetectable through any known diagnostic technique. Interpretation reviewed by: Elise Abad, Ph.D., [facility]. 14 For additional information, please refer to http://education.[employer].com/faq/FAQ94 (This link is provided for informational/educational purposes only.) This is a screening test, not a diagnostic test. This risk assessment is based on demographic data provided by the ordering physician. Please notify the laboratory promptly if any data are incorrect. It has been observed that patients who smoke cigarettes during may have a slightly increased risk of having a false positive OCTAVIA screen for Down Syndrome or trisomy 18. If you have questions concerning this report: For clinical consultation, call ; For technical questions, call ext [phone]; For recalculations, fax to [phone]. 15 REFERENCE VALUE Cutoff: 500 16 REFERENCE VALUE Cutoff: 200 17 REFERENCE VALUE Cutoff: 100 18 REFERENCE VALUE Cutoff: 150 19 ADDITIONAL INFORMATION This report is intended for use in clinical monitoring or management of patients. It is not intended for use in employment-related testing. 20 REFERENCE VALUE Cutoff: 200 mg/L 21 Tylenol 3 22 Metabolite of codeine REFERENCE VALUE Cutoff: 100 23 Cora Chavira, MS Contin; Also a minor metabolite (10%) of codeine and can be seen in low concentrations (<2,000 ng/mL) with poppy seed ingestion. 24 Metabolite of morphine REFERENCE VALUE Cutoff: 100 25 Metabolite of heroin 26 Lortab, [place], Vicodin; Also a very minor metabolite of codeine and impurity (<1%) of oxycodone. 27 Metabolite of hydrocodone 28 Metabolite of hydrocodone 29 Dilaudid, Exalgo; Also a metabolite of hydrocodone and a minor (<5%) metabolite of morphine. 30 Metabolite of hydromorphone REFERENCE VALUE Cutoff: 100 31 Endocet, Percocet, Oxycontin 32 Metabolite of oxycodone 33 Numorphan, Opana; Also a metabolite of oxycodone. 34 Metabolite of oxymorphone REFERENCE VALUE Cutoff: 100 35 Metabolite of oxymorphone 36 Actiq, Duragesic, Fentora 37 Metabolite of fentanyl 38 Demerol 39 Metabolite of meperidine 40 Narcan 41 Metabolite of naloxone REFERENCE VALUE Cutoff: 100 42 Dolophine 43 Metabolite of methadone 44 Darvon, Darvocet 45 Metabolite of propoxyphene 46 Tradol, Ultram, Ultracet 47 Metabolite of tramadol 48 Nucynta 49 Metabolite of tapentadol 50 Metabolite of tapentadol REFERENCE VALUE Cutoff: 100 51 Buprenex, Suboxone 52 Metabolite of buprenorphine 53 Metabolite of buprenorphine 54 No opioids were detected. The absence of expected drug(s) and/or drug metabolite(s) may indicate non-compliance, altered pharmacokinetics, inappropriate timing of specimen collection relative to drug administration, diluted/adulterated urine, or limitations of testing. ADDITIONAL INFORMATION This test was developed and its performance characteristics determined by [facility] in a manner consistent with CLIA requirements. This test has not been cleared or approved by the U.S. Food and Drug Administration. Test Performed by: [facility] [address] [place] [address] Procedures Date Code Description Status 06/29/2019 20488 Obstetric Care Routine Completed 06/27/2019 32563 Non-Stress Test Completed 06/20/2019 25247 Biophysical Profile Without Non Stress Test Completed 06/20/2019 61672 Echography Uterus Follow-Up Or Repeat Completed 06/14/2019 35313 Echography Uterus Limited Completed 02/15/2019 65494 Echography Uterus Complete Completed Medical Devices Description No Information Available Encounters Type Date Location Provider Dx Diagnosis Office Visit 07/18/2019 [facility] [place]ergianni Kaur, O90.6 mood 8:15a CN disturbance Office Visit 06/27/2019 Delivery Janny Jordan CNM O47.1 False labor at or 9:19a after 37 completed weeks of gestation Assessments Date Code Description Provider 07/18/2019 O90.6 mood disturbance Carlos Alberto KaurMARIA ALEJANDRA 06/29/2019 O80 Encounter for full-term uncomplicated Kami Feng CNM delivery 06/29/2019 Z39.0 Encounter for care and examination of Kami Feng CNM mother immediately after delivery 06/29/2019 Z37.0 Single live GALINDO RodriguezIvonne 06/27/2019 O47.1 False labor at or after 37 completed Janny Jordan GALINDOIvonne weeks of gestation 06/27/2019 O24.410 Gestational diabetes mellitus in Slime Morocho CNM , diet controlled 06/20/2019 O24.410 Gestational diabetes mellitus in Marjan Barnes MD , diet controlled 06/20/2019 O24.410 Gestational diabetes mellitus in Idalia Neville CNM , diet controlled 06/20/2019 O24.410 Gestational diabetes mellitus in Ultrasounds , diet controlled 06/14/2019 O24.410 Gestational diabetes mellitus in Janny JordanMARIA ALEJANDRA , diet controlled 06/07/2019 O24.410 Gestational diabetes mellitus in Kami Feng CNM , diet controlled 05/17/2019 Z34.83 Encounter for supervision of other normal Janny Joradn MARIA ALEJANDRA , third trimester 04/25/2019 Z36.9 Encounter for screening, Zoey Torres MD unspecified 04/25/2019 Z36.9 Encounter for screening, Laboratory unspecified 04/25/2019 Z34.83 Encounter for suprvsn of normal Janny Jordan CNM , third trimester 04/12/2019 Z36.9 Encounter for screening, Odell Alcala M.D. unspecified 04/12/2019 Z23 Encounter for immunization Carlos Alberto Kaur CNM 04/12/2019 Z36.9 Encounter for screening, Carlos Alberto Kaur CNM unspecified 04/12/2019 Z36.9 Encounter for screening, Laboratory unspecified 03/15/2019 Z34.82 Encounter for suprvsn of normal Carlos Alberto Kaur CNM , second trimester 02/15/2019 Z36.3 Encounter for screening for Marjan Barnes MD malformations 02/15/2019 Z34.82 Encounter for suprvsn of normal Kami Feng CNM , second trimester 02/15/2019 Z36.3 Encounter for screening for Ultrasounds malformations 01/25/2019 Z34.82 Encounter for suprvsn of normal Slime Damonalysa Morocho, MARIA ALEJANDRA , second trimester Plan of Treatment Future Appointment(s):08/09/2019 1:00 pm - Kami Feng CNM at [facility]/18/2019 - GALINDO MagdalenoMO90.6 mood disturbanceComments: Sertraline 25mg sent, instructed on taper up. Schedule a 4-6 weeks PPCK and that will be a good follow up on how medication is working. We can continue follow up in person or by phone as needed going forward to consider dosage changes.I recommend continuing counseling. You stated your will also be starting counseling which may help him have support.Consider Vitamin D 1-2,000 IU daily, mj in winter.Return call for any concerns, worsening of mood or other problems. Functional Status Functional Condition Comment Date Status Glasses Active Mental Status Description No Information Available Referrals Refer to Reason for Referral Status Appt Date [facility] Healthy Living GDM Closed [address] [place] [id number] [phone]
--- OUTSIDE RECORDS SUMMARY | 2019-07-20 11:15 | XMS REPORT | Continuity of Care Document ---
:1990 External Reference #:[id number] Author Name Jana Morales MD (transmitted by agent of provider Buffy Davis) Address [address] [place] [address] Care Team Providers Name Role Phone Jana Morales MD - Student in an Care Team Information Retinal Angiographer [phone] Organized Health Care Education/Training Program Problems Description No Information Available Social History Type Date Description Comments Sex Unknown ETOH Use Never used alcohol Tobacco Use Start: Unknown Patient has never smoked Recreational Drug Use Denies Drug Use Smoking Status Reviewed: 06/25/19 Patient has never smoked Allergies, Adverse Reactions, Alerts Description No Known Drug Allergies Medications Active Medications SIG Qnty Indications Ordering Provider Date 1 by mouth every Unknown Tablets day Docu Soft 2 capsules once a Unknown 100mg day Capsules Magnesium 2 by mouth every Unknown 250mg Tablets day Immunizations Description No Information Available Vital Signs Date Vital Result Comment 06/25/2019 1:18pm Height 61.5 inches 5'1.50" Weight 127.00 lb Heart Rate 90 /min BP Systolic 109 mmHg BP Diastolic 70 mmHg Body Temperature 97.5 F O2 % BldC Oximetry 98 % BMI (Body Mass Index) 23.6 kg/m2 Results Description No Information Available Procedures Description No Information Available Medical Devices Description No Information Available Encounters Description No Information Available Assessments Date Code Description Provider 06/25/2019 O24.410 Gestational diabetes mellitus in , diet Jana Morales MD controlled 06/25/2019 N81.4 Uterovaginal prolapse, unspecified Jana Morales MD 06/25/2019 Z23 Encounter for immunization Jana Morales MD Plan of Treatment 06/25/2019 - Jana Morales MDO24.410 Gestational diabetes mellitus in , diet controlledComments:Your blood sugar should normalize after delivery. Please continue to follow up with us if your sugarcontinues to be elevated 6 weeks after delivery.Follow up:As needed or annual.N81.4 Uterovaginal prolapse, unspecifiedComments:Continue to follow up with anthropological linguist for urinary incontinence and bladder prolapse.Z23 Encounter for immunizationComments:Please do flu vaccine Functional Status Description No Information Available Mental Status Description No Information Available Referrals Description No Information Available
[2019-07-20 11:21] VITALS: BP 125/75
[2019-07-20] MEDS ORDERED: Famotidine TAB* 20 MG PO ONE (11:31)
[2019-07-20] MEDS ORDERED: predniSONE TAB* 20 MG PO ONE (11:31)
--- NOTE | 2019-07-20 11:38 | UC ---
Allergic Reaction HPI - HPI Summary HPI Summary: 29-year-old female comes in with allergic reaction. She took Zoloft for the first time and 10 minutes later she started with hives on her face and her body. Also some increased rhinorrhea. No difficulty swallowing or breathing does not feel like her throat swallowing. She took Benadryl 50 mg by mouth and the rash is decreasing. Patient has had a history of allergic reactions although it's undetermined what she's been allergic to in the past. She has had an EpiPen has been years since she had a reaction and does not have the EpiPen anymore. - History of Current Complaint Chief Complaint: UCRas Stated Complaint: POSSIBLE ALLERGIC REACTION Time Seen by Provider: 07/20/19 11:29 Hx Last Menstrual Period: 2016.just gave Pain Intensity: 0 - Allergies/Home Medications Allergies/Adverse Reactions: Allergies Allergy/AdvReac Type Severity Reaction Status Date / Time No Known Allergies Allergy Verified 06/27/19 22:35 Home Medications: Home Medications Sertraline HCl [Zoloft] 25 mg PO 07/20/19 [History] diPHENhydraMINE PO* [Benadryl PO 50 MG CAP*] 07/20/19 [History Confirmed ] PMH/Surg Hx/FS Hx/Imm Hx Previously Healthy: Yes - HX ALLERGIC REACTIONS Other History Of: Negative For: HIV, Hepatitis B, Hepatitis C - Surgical History Surgical History: None - Family History Known Family History: Negative: Renal Disease, Blood Disorder - Social History Alcohol Use: None Substance Use Type: None Smoking Status (MU): Never Smoked Tobacco - Immunization History Most Recent Influenza Vaccination: 06/26/2017 Most Recent Pneumonia Vaccination: n/a Review of Systems All Other Systems Reviewed And Are Negative: Yes Constitutional: Positive: Other - SEE HPI Skin: Positive: Other - SEE HPI Eyes: Positive: Negative ENT: Positive: Nasal Discharge Respiratory: Negative: Shortness Of Breath Cardiovascular: Positive: Negative Gastrointestinal: Positive: Negative Motor: Positive: Negative Neurovascular: Positive: Negative Musculoskeletal: Positive: Negative Neurological: Positive: Negative Psychological: Positive: Negative Is Patient Immunocompromised?: No Physical Exam Triage Information Reviewed: Yes Appearance: Well-Appearing, No Pain Distress, Well-Nourished Vital Signs: Initial Vital Signs Temp 97.9 F 07/20/19 11:15 Pulse 87 10/12/19 11:15 Resp 18 07/20/19 11:15 BP 125/75 07/20/19 11:15 Pulse Ox 96 07/20/19 11:15 Vital Signs Reviewed: Yes Eye Exam: Normal Eyes: Positive: Conjunctiva Clear ENT: Positive: Pharynx normal, Uvula midline. Negative: Muffled voice, Hoarse voice Neck: Positive: Supple Respiratory: Positive: Lungs clear, Normal breath sounds, No respiratory distress Cardiovascular: Positive: RRR Musculoskeletal: Positive: Strength Intact, ROM Intact Neurological: Positive: Alert, Muscle Tone Normal Psychological: Positive: Age Appropriate Behavior Skin: Positive: Other - Patient has diffuse hives to include her face. Allergic Reaction Course/Dx - Course Course Of Treatment: In the clinic the patient was given prednisone 60 mg by mouth and Pepcid 40 mg by mouth with continued improvement in her rash. Patient is breast-feeding we discussed that the Benadryl can make her infant sleepy and to watch her for that. Recommended using a second generation antihistamine rather than the Benadryl. Patient no longer has her EpiPen from prior allergic reaction so I wrote a prescription for that also. Patient knows that if she has any problems with airway are she worsens she needs to get emergency treatment either via 911 her by getting to the emergency department. - Differential Dx/Diagnosis Provider Diagnosis: Allergic reaction caused by a drug Discharge ED - Sign-Out/Discharge Documenting (check all that apply): Patient Departure All imaging exams completed and their final reports reviewed: No Studies - Discharge Plan Condition: Stable Disposition: HOME Prescriptions: EPINEPHrine [Epipen 2-Omid] 0.3 mg IM ONCE PRN #1 inj PRN Reason: Allergy Symptoms Famotidine TAB* [Pepcid 20 MG TAB*] 20 mg PO BID PRN #8 tab PRN Reason: Allergy Symptoms predniSONE TAB* [Deltasone 20 MG TAB*] 40 mg PO DAILY PRN #8 tab PRN Reason: Allergy Symptoms Patient Education Materials: General Allergic Reaction (ED) Referrals: Jana Morales MD [Primary Care Provider] - Additional Instructions: FOLLOW UP WITH YOUR DOCTOR IF NOT COMPLETELY IMPROVED. GO TO THE EMERGENCY DEPARTMENT IF YOUR CONDITION WORSENS; DIFFICULTY SWALLOWING OR BREATHING, YOU FEEL ILL OR ANY QUESTIONS OR CONCERNS. TAKE PEPCID 20MG TWICE A DAY NEEDED. TAKE THE PREDNISONE DIRECTED NEEDED. - Billing Disposition and Condition Condition: STABLE Disposition: Home
== END 2019-07-20 12:11 | disposition home or self-care (01) ==
LOC: UCEAST 11:10
DX: L50.0 Allergic urticaria (principal); J34.89 Other specified disorders of nose and nasal sinuses; T43.225A Adverse effect of selective serotonin reuptake inhibitors, initial encounter; Y92.9 Unspecified place or not applicable
CPT/HCPCS: 99212; A9270-GY; G0463; J7512